=== PATIENT | female | born 1965 ===

== ENCOUNTER 2017-07-19 23:04 | Emergency (ER) | payer OTHER ==
[~2017-07-19] VITALS: Ht 157.5 cm; Wt 70.3 kg
[2017-07-19] MEDS ORDERED: CIPRO500 MG (23:37)
[2017-07-20] MEDS ORDERED: PEPCID20 MG PO (09:46)
[2017-07-20] MEDS ORDERED: BACTRIM DS TAB1 EACH PO (09:46)
== END 2017-07-20 10:58 | disposition home or self-care (01) ==
LOC: ER 23:04
DX: L03.116 Cellulitis of left lower limb (principal); L03.115 Cellulitis of right lower limb